=== PATIENT | female | born 1985 | race Caucasian/White ===

== ENCOUNTER 2016-08-26 09:29 | Emergency (ER) | payer OTHER ==
[2016-08-26 10:23] LABS: URINE SOURCE CLEAN CATCH
[2016-08-26 10:24] LABS: MANUAL DIFF NEEDED? NO
[2016-08-26 10:33] LABS: BASO% 1.6 % (0.0-0.8); EOS# 0.17 X1000 (0.0-0.7); EOS% 3.1 % (0.0-10.0); HEMATOCRIT 39.5 % (37.0-47.0); HEMOGLOBIN 13.6 g/dL (12.0-16.0); IMM GRAN# 0.01 X1000 (0.0-0.04); IMM GRAN% 0.2 % (0.0-0.5); LYMPH# 1.14 X1000 (1.2-3.4); LYMPH% 20.8 % (20.5-51.1); MCH 32.2 PG (27-31); MCHC 34.4 g/dL (33-37); MCV 93.4 FL (81-99); MONO# 0.47 X1000 (0.11-0.59); MONO% 8.6 % (1.7-9.3); MPV 10.3 FL (7.4-10.4); NEUT% 65.7 % (42.2-75.2); PLT 246 X1000 (130-400); RBC 4.23 XMIL (4.2-5.4)
[2016-08-26 10:33] LABS: UR AMPHETAMINES QUAL PRESUMPTIVE POSITIVE (NONE DETECT); UR BARBITUATES QUAL NONE DETECTED (NONE DETECT); UR BENZODIAZEPIN QUAL PRESUMPTIVE POSITIVE (NONE DETECT); UR CANNABINOIDS QUAL NONE DETECTED (NONE DETECT); UR COCAINE QUAL NONE DETECTED (NONE DETECT); UR MDMA QUAL NONE DETECTED (NONE DETECT); UR METHADONE QUAL NONE DETECTED (NONE DETECT); UR METHAMPHETAMINE QUAL PRESUMPTIVE POSITIVE (NONE DETECT); UR OPIATES QUAL NONE DETECTED (NONE DETECT); UR OXYCODONE QUAL NONE DETECTED (NONE DETECT); UR PCP QUAL NONE DETECTED (NONE DETECT); UR TCA QUAL NONE DETECTED (NONE DETECT)
[2016-08-26 10:36] LABS: BILIRUBIN URINE NEGATIVE (NEGATIVE); BLOOD URINE TRACE (NEGATIVE); CLARITY CLEAR (CLEAR); COLOR YELLOW; GLUCOSE URINE NEGATIVE (NEGATIVE); LEUKOCYTES URINE NEGATIVE (NEGATIVE); NITRITE URINE POSITIVE (NEGATIVE); PROTEIN URINE TRACE mg/dL (NEGATIVE); UROBILINOGEN URINE NORMAL
[2016-08-26 10:47] LABS: AGAP 13; ALBUMIN 5.1 g/dL (3.5-5.0); ALKALINE PHOSPHATASE 109 U/L (32-104); BUN 10 mg/dL (8-22); CALCIUM 9.9 mg/dL (8.8-10.2); CHLORIDE 100 mmol/L (98-107); COSMO 276; GOT 70 U/L (10-30); GPT 32 U/L (10-36); POTASSIUM 3.3 mmol/L (3.5-5.1); SODIUM 139 mmol/L (136-145); TCO2 27 mmol/L (25-35); TOTAL PROTEIN 7.5 g/dL (6.3-8.3)
[2016-08-26 10:57] LABS: FREE T4 1.47 ng/dL (0.93-1.70)
[2016-08-26 11:19] LABS: URINE CULTURE PL NEEDED? YES; URINE EPITHELIAL CELLS >10 /HPF (<10); URINE WBC <10 /HPF (<10)
--- NOTE | 2016-08-26 12:23 | PROVIDER DOCUMENTATION ---
HPI-Psychological Disorder - General Source: patient - History of Present Illness-Psych Onset/Duration: reports: abrupt (recent increase in activity level abrupt), gradual (pt reports worsening of extremeness of mood swings gradually over last year) Timing: reports: still present Severity: reports: mild Psychiatric Complaints: reports: restlessness. denies: homicidal thoughts, suicidal ideation <Claudette Borges - Last Filed: 08/26/16 12:19> <Corey Ventura - Last Filed: 08/26/16 13:33> - General Chief Complaint: Diarrhea Stated Complaint: PSYCH Time Seen by Provider: 08/26/16 09:50 Allergies/Adverse Reactions: Patient Allergies Allergy/AdvReac Type Severity Reaction Status Date / Time Penicillins Allergy Intermediate SWELLING Verified 06/13/16 23:04 Home Medications: Home Medication List Medication Instructions Recorded Confirmed Last Taken Type Buspirone HCl [Buspar] 7.5 mg PO BID 06/07/16 06/13/16 08/26/16 History Paroxetine HCl [Paxil] 1 tab PO DAILY 07/22/16 07/22/16 08/26/16 History Trazodone HCl 100 mg PO QHS #30 tablet 08/26/16 Unknown Rx - History of Present Illness-Psych Nature of Presenting Problem: 29 yo WF presents to ED with chief complaint of excessive activity levels and decreased impulse control. Pt reports going on a shopping spree and spending several hours in a heightened state of activity. She reports feeling that her level of activity and her behavior is abnormal. She reports a long-term history of depression and that for the past year her mood swings have increased in severity. She denies any SI or HI. Upon arrival to ED, pt presents with appropriate thought processes and content, appropriate appearance, and mild distress. She states she is anxious about the prospect of being hospitalized. (Claudette Borges) Review of Systems - Adult - REVIEW OF SYSTEMS - ADULT Constitutional: reports: no symptoms reported. denies: chills, fever Eyes: reports: no symptoms reported. denies: blurred vision, eye pain Ears, Nose, Mouth & Throat: reports: no symptoms reported. denies: ear pain, sinus problem Cardiovascular: reports: no symptoms reported. denies: chest pain, heart murmur Respiratory: reports: no symptoms reported. denies: cough, hemoptysis Gastrointestinal: reports: no symptoms reported. denies: abdominal pain, diarrhea Genitourinary: reports: no symptoms reported. denies: dysuria, flank pain Musculoskeletal: reports: no symptoms reported. denies: bone pain, joint pain Integumentary: reports: no symptoms reported. denies: hives, itching Neurological: reports: no symptoms reported. denies: ataxia, loss of balance Psychiatric: reports: depression, panic attacks, other (increased activity, decreased impulse control). denies: suicidal thoughts Endocrine: reports: no symptoms reported. denies: cold intolerance, heat intolerance Hematologic/Lymphatic: reports: no symptoms reported. denies: blood clots, lymphedema Allergic/Immunologic: reports: no symptoms reported. denies: allergic reactions , eczema All Other Systems: Reviewed and Negative <Claudette Borges - Last Filed: 08/26/16 12:19> Past History - Adult - PAST MEDICAL HISTORY-ADULT Review of Records: reports: Old Records Reviewed, Nursing Assessment Review, Medications Reviewed Major Childhood Illnesses: reports: denies history Cardiovascular: reports: denies history Respiratory: reports: denies history Gastrointestinal: reports: inflammatory bowel disease (with colonic ulcers), IBS Obstetrical/Gynecological: reports: denies history Genitourinary: reports: denies history Musculoskeletal: reports: denies history Neurological: reports: denies history Psychiatric: reports: depression Endocrine/Immune: reports: denies history Other Conditions: reports: denies history - PRIOR SURGERIES/PROCEDURES Surgical/Procedure History: reports: colonoscopy, cholecystectomy, tonsillectomy - IMMUNIZATION STATUS Childhood Immunizations: See Nurse Assessment Flu Vaccine: See Nurse Assessment - FAMILY HISTORY Family History: reviewed, not pertinent <Claudette Borges - Last Filed: 08/26/16 12:19> Physical Exam-Psych Focus - Physical Exam-Psych Initial Vital Signs Reviewed: Yes Appearance: appropriate appearance, appropriate insight, neat, no memory impairment, alert, anxious Neurological: alert, oriented x 3 Behavior/Eye Contact/Speech: cooperative, good eye contact, normal speech Thoughts/Hallucinations: normal thought pattern, no apparent hallucination HENMT: normocephalic/atraumatic, moist mucous membranes Neck: non-tender, full range of motion, supple Respiratory: lungs clear, normal breath sounds Cardiovascular: normal peripheral pulses, regular rate, rhythm Abdominal Exam: non tender, soft Lymphatic: no adenopathy Back Exam: normal inspection, no vertebral tenderness Extremity: normal range of motion, non-tender, normal gait Integumentary: normal color, normal turgor, warm/dry <Claudette Borges - Last Filed: 08/26/16 12:19> Departure <Claudette Borges - Last Filed: 08/26/16 12:19> - Departure Time of Disposition Order: 12:45 Certified Medical Emergency: Emergent <Corey Ventura - Last Filed: 08/26/16 13:33> - Departure DIAGNOSIS: Manic-depression Qualifiers: Active/Remission status: currently active Current bipolar episode type: mixed Current episode severity: mild Qualified Code(s): F31.61 - Bipolar disorder, current episode mixed, mild Disposition: HOME 01 Condition: Good Additional Instructions: ED Follow Up Instructions: You have been treated by a care provider in the Emergency Department. These instructions are being provided to you so you can have an understanding of how to care for yourself upon discharge. Upon discharge from the Emergency Department, you are responsible for making arrangements for follow-up care by a physician of your choice. Take all prescribed medications as directed. Return to the Emergency Department immediately for any new or worsening symptoms. You may call the Physician Referral phone number at [phone] to obtain a list of Physicians who are taking new patients. Prescriptions: Trazodone HCl 100 mg PO QHS #30 tablet Referrals: Azeb Pruett CRNP [Primary Care Provider] - Forms: Return to School/Parent Work Instructions: Trazodone tablets, Depression, Adult Attestation - Scribe Verification/Attestation Scribe:: Claudette Borges Acting as Scribe for:: Corey Ventura Scribe documention review:: This chart was documented by a scribe and accurately reflects the service the provider performed and the decisions made by the provider. - Physician/ MAURI Attestation Patient care was provided by Advanced Practice Provider:: No <Claudette Borges - Last Filed: 08/26/16 12:19> Physician Attestation
[2016-08-26 14:12] VITALS: BP 119/80
== END 2016-08-26 14:24 | disposition home or self-care (01) ==
LOC: P.ED 09:29
DX: F31.61 Bipolar disorder, current episode mixed, mild (principal); F41.0 Panic disorder [episodic paroxysmal anxiety]; Z79.899 Other long term (current) drug therapy
CPT/HCPCS: 80053; 80305; 81001; 82607; 84439; 84443; 85025; 87088; 99284; G0480; 80320